=== PATIENT | male | born 1985 | race Caucasian/White ===

== ENCOUNTER 2018-10-05 22:38 | Emergency (ER) | payer SELFPAY ==
[~2018-10-05] VITALS: Ht 177.8 cm; Wt 69.0 kg
[2018-10-05 22:48] VITALS: BP 125/85
== END 2018-10-06 01:15 | disposition left against medical advice (07) ==
LOC: ER 23:02
DX: Z53.21 Procedure and treatment not carried out due to patient leaving prior to being seen by health care provider (principal)
CPT/HCPCS: 99283